=== PATIENT | female | born 1940 | race African-American/Black ===

== ENCOUNTER 2021-06-02 09:51 | Emergency (ER) | payer MEDICAID, OTHER ==
[~2021-06-02] VITALS: Ht 165.1 cm; Wt 60.0 kg
[~2021-06-02 09:51] MED LIST: BRIM5DRO6 OP; CALC-1068 PO; DICL75TA5 PO; DORZ10DR8 EACHEYE; ENAL20TA18 PO; METF-414 PO; PRED5DRO7 RIGHTEYE; SIMV-43 PO
[2021-06-02 16:29] VITALS: BP 133/76
== END 2021-06-02 16:30 | disposition home or self-care (01) ==
LOC: ER 09:51
DX: Z93.1 Gastrostomy status (principal); I10 Essential (primary) hypertension; E11.9 Type 2 diabetes mellitus without complications; Z79.899 Other long term (current) drug therapy; Z86.59 Personal history of other mental and behavioral disorders
CPT/HCPCS: 43760; 43762; 82962; 99283; 99284

== ENCOUNTER 2021-06-10 11:25 | Emergency (ER) | payer OTHER ==
[~2021-06-10] VITALS: Ht 170.2 cm; Wt 106.0 kg
[2021-06-10] MEDS ORDERED: DIATR MEGLU/DIATRIZOATE SOLN 30ML ONE (18:13)
[2021-06-11 09:35] VITALS: BP 129/64
== END 2021-06-11 09:37 | disposition home or self-care (01) ==
LOC: ER 11:25
DX: K94.23 Gastrostomy malfunction (principal); F03.90 Unspecified dementia, unspecified severity, without behavioral disturbance, psychotic disturbance, mood disturbance, and anxiety; E11.9 Type 2 diabetes mellitus without complications; E78.00 Pure hypercholesterolemia, unspecified; I10 Essential (primary) hypertension; Z86.73 Personal history of transient ischemic attack (TIA), and cerebral infarction without residual deficits; Z79.899 Other long term (current) drug therapy
CPT/HCPCS: 43762; 74018; 82962; 99285; Q9963

== ENCOUNTER 2022-07-12 09:31 | Inpatient (IN) | payer MEDICAID, OTHER ==
[~2022-07-12] VITALS: Ht 160 cm; Wt 103.0 kg
[2022-07-12 07:00] VITALS: BP 140/61
[~2022-07-12 09:31] MED LIST changes: +AMLO5TAB88 PO; +DOCU-347 PO; -ENAL20TA18 PO; +FERR325T6 PO; +INSU100I24 SQ; +LEVO-65 MT; +METO-396 PO; +NAPR-681 PO; +OLME40TA18 PO; +OXYB5TAB17 PO; -SIMV-43 PO; +TERB250T88 PO
[2022-07-12] MEDS ORDERED: SODIUM CHLORIDE 0.9% 1,000 ML IV ONE (11:15)
[2022-07-12 12:03] LABS: CHLORIDE 103 mEq/L (98-107)
[2022-07-12 12:06] LABS: HEMATOCRIT 36.7 % (36.0-48.0); MEAN CORPUSCULAR HEMOGLOBIN 29.7 pg (28.0-32.0); MEAN CORPUSCULAR VOLUME 90.6 fL (81.0-99.0); PLATELET 219 x1000/uL (130-400); RED BLOOD CELL COUNT 4.05 mill/uL (4.2-5.4); RED CELL DISTRIBUTION WIDTH 13.4 % (11.6-14.6)
[2022-07-12] MEDS ORDERED: IPRATROPIUM/ALBUTEROL 0.5-3(2.5)MG/3ML NEB HHN PRN (13:15)
[2022-07-12] MEDS ORDERED: ACETAMINOPHEN 325MG TABLET PO PRN (13:15)
[2022-07-12] MEDS ORDERED: DIPHENHYDRAMINE 50MG/ML VIAL IV PRN (13:15)
[2022-07-12] MEDS ORDERED: ONDANSETRON HCL 4MG/2ML INJ IV PRN (13:15)
[2022-07-12] MEDS ORDERED: CLONIDINE 0.1MG TABLET PO PRN (13:15)
[2022-07-12] MEDS: SODIUM CHLORIDE 0.9% 1,000 ML IV SCH (14:00)
[2022-07-12] MEDS ORDERED: DIATR MEGLU/DIATRIZOATE SOLN 30ML ONE (15:02)
[2022-07-12] MEDS ORDERED: DIATR MEGLU/DIATRIZOATE SOLN 30ML GT NR (15:15)
[2022-07-12] MEDS ORDERED: DEXTROSE 50% WATER 50ML SYRINGE IV PRN (16:30)
[2022-07-12] MEDS: BLOOD SUGAR DIAGNOSTIC STRIP TEST SCH ×2 (17:00→21:00)
[2022-07-12] MEDS: INSULIN LISPRO 100 UNITS/ML SUBCUT SCH ×2 (17:38→21:00)
[2022-07-12 20:00] VITALS: BP 150/76
[2022-07-13] VITALS (7 sets, daily range): BP systolic 109–166; BP diastolic 48–85
[2022-07-13] MEDS: BLOOD SUGAR DIAGNOSTIC STRIP TEST SCH ×4 (06:45→21:00)
[2022-07-13 06:57] LABS: CHLORIDE 106 mEq/L (98-107)
[2022-07-13] MEDS: INSULIN LISPRO 100 UNITS/ML SUBCUT SCH ×4 (07:05→21:00)
[2022-07-13 07:28] LABS: BASOPHILS % 0.5 % (0.0-2.0); EOSINOPHILS % 1.3 % (0.0-5.0); HEMATOCRIT. 35.6 % (36.0-48.0); HEMOGLOBIN. 11.8 g/dL (12.0-16.0); LYMPHOCYTES % 37.1 % (20.0-50.0); MEAN CORPUSCULAR HEMOGLOBIN 30.2 pg (28.0-32.0); MEAN CORPUSCULAR VOLUME 91.5 fL (81.0-99.0); MEAN PLATELET VOLUME 8.7 fl (7.4-10.4); MONOCYTES % 10.7 % (2.0-8.0); NEUTROPHILS % 50.4 % (40.0-76.0); PLATELET 199 x1000/uL (130-400); RED CELL DISTRIBUTION WIDTH 13.2 % (11.6-14.6)
[2022-07-13] MEDS: SODIUM CHLORIDE 0.9% 1,000 ML IV SCH ×3 (13:12→20:00)
[2022-07-13] MEDS: METOCLOPRAMIDE HCL 10MG/2ML VIAL IV SCH ×2 (13:33→18:31)
[2022-07-14] VITALS: BP 125/72
[2022-07-14] MEDS: METOCLOPRAMIDE HCL 10MG/2ML VIAL IV SCH ×2 (00:32→06:19)
[2022-07-14] MEDS: SODIUM CHLORIDE 0.9% 1,000 ML IV SCH (06:30)
[2022-07-14] MEDS: BLOOD SUGAR DIAGNOSTIC STRIP TEST SCH (06:31)
[2022-07-14] MEDS: INSULIN LISPRO 100 UNITS/ML SUBCUT SCH (06:36)
[2022-07-14 08:00] VITALS: BP 178/71
[2022-07-14 10:46] VITALS: BP 130/53
== END 2022-07-14 11:20 | disposition home or self-care (01) | DRG 252 ==
LOC: ER 09:31 → 5WST 12:57 → EDBEDREQTM 13:05 → EDBEDREQ 13:05 → ENRESERV 17:33 → 6WST 07-13 15:15
PROVIDERS: ADMIT Internal Medicine; ATTEND Internal Medicine
PROC: 0D20XUZ Change Feeding Device in Upper Intestinal Tract, External Approach (ICD-10-PCS; principal; 2022-07-12)
DX: K94.23 Gastrostomy malfunction (principal); E44.1 Mild protein-calorie malnutrition; F03.90 Unspecified dementia, unspecified severity, without behavioral disturbance, psychotic disturbance, mood disturbance, and anxiety; E11.65 Type 2 diabetes mellitus with hyperglycemia; E66.9 Obesity, unspecified; E78.00 Pure hypercholesterolemia, unspecified; I10 Essential (primary) hypertension; Z68.41 Body mass index [BMI] 40.0-44.9, adult; Z86.73 Personal history of transient ischemic attack (TIA), and cerebral infarction without residual deficits
CPT/HCPCS: 36415; 74018; 80053; 82962; 85025; 85027; 93970; 99285; C1893; J1815; J2765; J7030; Q9963